=== PATIENT | male | born 1995 | race Caucasian/White ===

== ENCOUNTER 2020-02-01 08:11 | Emergency (ER) | payer SELFPAY ==
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
[2020-02-01] MEDS ORDERED: Cephalexin 500 MG Cap PO ONE (08:39)
== END 2020-02-01 08:55 | disposition home or self-care (01) ==
LOC: MW.ED 08:11
DX: K02.9 Dental caries, unspecified (principal)
CPT/HCPCS: 99282; A9270

== ENCOUNTER 2023-03-05 20:57 | Emergency (ER) | payer SELFPAY | END 2023-03-06 00:53 | LOC: MW.ED 20:57 | DX: I10 Essential (primary) hypertension (principal) | CPT/HCPCS: 99283 ==